=== PATIENT | male | born 1970 | race Caucasian/White ===

== ENCOUNTER 2016-06-27 19:24 | Inpatient (IN) | payer OTHER ==
[~2016-06-27] VITALS: Ht 185.4 cm; Wt 84.5 kg
[~2016-06-27 19:24] MED LIST: CLINDAMYCIN HC150 MG PO; DOXEPIN HCL25 MG PO; HYDROCODON-ACE1 EACH; KLONOPIN1 MG PO; LITHIUM CARBON300 M1 PO; LITHIUM CARBON600 MG PO; MOBIC15 MG PO; MOTRIN600 MG PO; TRAMADOL HCL50 MG PO; ZOLOFT100 MG PO; [UNRECOGNIZED DRUG - OTHER]; [UNRECOGNIZED DRUG - OTHER] PO
[2016-06-27] MEDS ORDERED: TYLENOL REGULA325 MG PO (20:36)
[2016-06-27 23:17] LABS: HEMATOCRIT 38.4 % (38.0-50.0); MCH 29.1 PG (29.0-34.0); MCHC 35.4 G/DL (30.0-36.0); MCV 82.1 FL (86-99); MEAN PLAT.VOLUME 10.4 uM^3 (9.0-12.4); PLATELET COUNT 357 K/uL (156-360); RBC DIS.WIDTH-CV 15.9 % (11.8-14.6); RBC DIS.WIDTH-SD 46.6 % (39-53); RED BLOOD COUNT 4.68 M/uL (4.00-5.50); WHITE BLOOD COUNT 13.3 K/uL (4.1-10.2)
[2016-06-27 23:29] LABS: CHLORIDE 108 mEq/L (99-109); POTASSIUM 3.7 mEq/L (3.7-5.4); SODIUM 142 mEq/L (136-147)
[2016-06-27 23:31] LABS: GLUCOSE 111 mg/dL (70-99)
[2016-06-27 23:33] LABS: ANION GAP 10 MEQ/L (2-14); TOTAL BILIRUBIN 0.7 mg/dL (0.0-1.0)
[2016-06-27 23:35] LABS: GFR ESTIMATE (CALCULATED) > 59 mL/min/
[2016-06-27 23:36] LABS: ALKALINE PHOSPHATASE 53 IU/L (3-129)
[2016-06-27 23:37] LABS: UREA NITROGEN (BUN) 12 mg/dL (9-23)
[2016-06-27 23:39] LABS: SALICYLATE < 5.0 MG/DL (15-30)
[2016-06-28 01:36] VITALS: BP 110/66
[2016-06-28 02:23] VITALS: BP 110/66
[2016-06-28 05:50] VITALS: BP 129/60
[2016-06-28 06:11] LABS: HEMATOCRIT 42.5 % (38.0-50.0); MCH 28.5 PG (29.0-34.0); MCHC 34.8 G/DL (30.0-36.0); MCV 81.9 FL (86-99); MEAN PLAT.VOLUME 10.1 uM^3 (9.0-12.4); PLATELET COUNT 400 K/uL (156-360); RBC DIS.WIDTH-CV 15.9 % (11.8-14.6); RBC DIS.WIDTH-SD 46.4 % (39-53); RED BLOOD COUNT 5.19 M/uL (4.00-5.50)
[2016-06-28 06:29] LABS: ANION GAP 9 MEQ/L (2-14); CHLORIDE 107 MEQ/L (99-109); GFR ESTIMATE (CALCULATED) > 59 mL/min/; GLUCOSE 138 mg/dL (70-99); POTASSIUM 4.1 MEQ/L (3.7-5.4); SAMPLE HEMOLYSIS CHECK 0; SAMPLE ICTERIC CHECK 0; SAMPLE LIPEMIA CHECK 0; SODIUM 138 MEQ/L (136-147); UREA NITROGEN (BUN) 11 mg/dL (9-23)
[2016-06-28 07:43] VITALS: BP 109/58
[2016-06-28 19:38] VITALS: BP 114/76
== END 2016-06-28 20:20 | disposition left against medical advice (07) | DRG 54 ==
LOC: EME 19:24 → EDOF 23:52 → 3EAST 06-28 01:13
PROVIDERS: Family Medicine; Physician Assistant
DX: C79.31 Secondary malignant neoplasm of brain (principal); G93.6 Cerebral edema; C34.90 Malignant neoplasm of unspecified part of unspecified bronchus or lung; G93.89 Other specified disorders of brain; J44.9 Chronic obstructive pulmonary disease, unspecified; F17.210 Nicotine dependence, cigarettes, uncomplicated; F10.129 Alcohol abuse with intoxication, unspecified; F32.9 Major depressive disorder, single episode, unspecified
CPT/HCPCS: 70450; 70553; 71260; 74177; 80048; 80053; 85027; 99202; 99281; 99285; G0480; J1100; J1200; J1650; J1885; J2270; J2765; J7030; J7120

== ENCOUNTER 2016-07-07 22:16 | Emergency (ER) | payer OTHER ==
[~2016-07-07] VITALS: Ht 185.4 cm; Wt 87.2 kg
[~2016-07-07 22:16] MED LIST changes: +TYLENOL REGULA325 MG PO
[2016-07-08] MEDS ORDERED: PERCOCET 5/31 TABLET PO (00:02)
[2016-07-08] MEDS ORDERED: REGLAN10 MG PO (00:02)
[2016-07-08 00:24] VITALS: BP 116/65
[2016-07-14] MEDS ORDERED: DECADRON4 MG PO (12:45)
[2016-07-14] MEDS ORDERED: PERCOCET 7.51 TABLET PO (12:47)
[2016-07-14] MEDS ORDERED: PRILOSEC20 MG PO (12:49)
== END 2016-07-08 00:34 | disposition home or self-care (01) ==
LOC: EME 22:16
DX: R51 Headache (principal); D49.6 Neoplasm of unspecified behavior of brain; Z72.0 Tobacco use
CPT/HCPCS: 99281; 99284

== ENCOUNTER 2016-07-15 07:58 | Inpatient (IN) | payer OTHER ==
[2016-07-15] VITALS (7 sets, daily range): BP systolic 111–125; BP diastolic 70–90
[~2016-07-15] VITALS: Ht 185.4 cm; Wt 79.5 kg
[~2016-07-15 07:58] MED LIST changes: +DECADRON4 MG PO; +PERCOCET 5/31 TABLET PO; +PERCOCET 7.51 TABLET PO; +PRILOSEC20 MG PO; +REGLAN10 MG PO
[2016-07-15 09:58] LABS: HEMATOCRIT 38.4 % (38.0-50.0); MCH 28.9 PG (29.0-34.0); MCHC 35.4 G/DL (30.0-36.0); MCV 81.7 FL (86-99); MEAN PLAT.VOLUME 10.1 uM^3 (9.0-12.4); PLATELET COUNT 388 K/uL (156-360); RBC DIS.WIDTH-CV 15.7 % (11.8-14.6); RBC DIS.WIDTH-SD 45.5 % (39-53)
[2016-07-15 09:59] LABS: WHITE BLOOD COUNT 19.6 K/uL (4.1-10.2)
[2016-07-15 10:25] LABS: ANION GAP 7 MEQ/L (2-14); CHLORIDE 103 MEQ/L (99-109); GFR ESTIMATE (CALCULATED) > 59 mL/min/; GLUCOSE 103 mg/dL (70-99); POTASSIUM 4.1 MEQ/L (3.7-5.4); SAMPLE HEMOLYSIS CHECK 0; SAMPLE ICTERIC CHECK 0; SAMPLE LIPEMIA CHECK 0; SODIUM 136 MEQ/L (136-147); UREA NITROGEN (BUN) 25 mg/dL (9-23)
[2016-07-15 22:20] LABS: METH RESISTANT S AUREUS PCR NEGATIVE (NEGATIVE)
[2016-07-15 22:24] LABS: PROBE CHECK PASS; SPECIMEN PROCESSING CONTROL PASS
[2016-07-16] VITALS (17 sets, daily range): BP systolic 100–136; BP diastolic 61–84
[2016-07-17] VITALS: BP 123/71
[2016-07-17 04:00] VITALS: BP 119/77
[2016-07-17 08:00] VITALS: BP 120/74
[2016-07-17 12:00] VITALS: BP 118/59
[2016-07-17 15:00] VITALS: BP 128/80
== END 2016-07-17 15:40 | disposition home or self-care (01) | DRG 25 ==
LOC: 2SOUTH 07:58 → 4WEST 07:58 → 2SOUTH 08:00 → 4WEST 19:10
PROVIDERS: Neurological Surgery
PROC: 00B70ZZ Excision of Cerebral Hemisphere, Open Approach (ICD-10-PCS; principal; 2016-07-15)
DX: C79.31 Secondary malignant neoplasm of brain (principal); G93.5 Compression of brain; G93.6 Cerebral edema; C34.90 Malignant neoplasm of unspecified part of unspecified bronchus or lung; J44.9 Chronic obstructive pulmonary disease, unspecified; F31.9 Bipolar disorder, unspecified; G43.909 Migraine, unspecified, not intractable, without status migrainosus
CPT/HCPCS: 70450; 77021; 80048; 85027; 86850; 86900; 86901; 87641; 88307; 88331; 88341 TC; 88342 TC; 93005; 95938; C1713; J0131; J0330; J0690; J1100; J1170; J2250; J2270; J2405; J3010; J3480

== ENCOUNTER 2016-12-18 18:23 | Emergency (ER) | payer OTHER ==
[~2016-12-18] VITALS: Ht 185.4 cm; Wt 79.1 kg
[2016-12-18 18:46] LABS: HEMATOCRIT 45.2 % (38.0-50.0); MCH 31.4 PG (29.0-34.0); MCHC 37.6 G/DL (30.0-36.0); MCV 83.4 FL (86-99); MEAN PLAT.VOLUME 9.6 uM^3 (9.0-12.4); PLATELET COUNT 307 K/uL (156-360); RBC DIS.WIDTH-CV 15.6 % (11.8-14.6); RBC DIS.WIDTH-SD 46.8 % (39-53); RED BLOOD COUNT 5.42 M/uL (4.00-5.50); WHITE BLOOD COUNT 20.7 K/uL (4.1-10.2)
[2016-12-18 18:50] LABS: CHLORIDE 92 mEq/L (99-109); POTASSIUM 3.6 mEq/L (3.7-5.4); SODIUM 134 mEq/L (136-147)
[2016-12-18 18:51] LABS: GLUCOSE 57 mg/dL (70-99)
[2016-12-18 18:53] LABS: ANION GAP 21 MEQ/L (2-14)
[2016-12-18 18:55] LABS: GFR ESTIMATE (CALCULATED) > 59 mL/min/
[2016-12-18 18:56] LABS: UREA NITROGEN (BUN) 9 mg/dL (9-23)
[2016-12-18 19:39] LABS: TROP-I INTERPRETATION NEGATIVE; TROPONIN-I 0.01 ng/mL (0.0-0.30)
[2016-12-18] MEDS ORDERED: DOXYCYCLINE HY100 MG PO (20:35)
[2016-12-18] MEDS ORDERED: ROBITUSSIN AC,T10 ML PO (20:35)
[2016-12-18 21:13] VITALS: BP 150/87
== END 2016-12-18 21:28 | disposition home or self-care (01) ==
LOC: EME 18:23
PROVIDERS: Emergency Medicine
DX: J40 Bronchitis, not specified as acute or chronic (principal); C34.90 Malignant neoplasm of unspecified part of unspecified bronchus or lung; Z87.891 Personal history of nicotine dependence; Z92.3 Personal history of irradiation
CPT/HCPCS: 71020; 80048; 84484; 85027; 93005; 99281; 99284

== ENCOUNTER 2017-01-29 17:49 | Emergency (ER) | payer OTHER ==
[~2017-01-29] VITALS: Ht 185.4 cm; Wt 79.7 kg
[~2017-01-29 17:49] MED LIST changes: +DOXYCYCLINE HY100 MG PO; +ROBITUSSIN AC,T10 ML PO
[2017-01-29 18:22] LABS: BASOPHIL COUNT 0.1 K/uL (0-0.1); EOSINOPHIL (%) 0.8 % (0-5); EOSINOPHIL COUNT 0.1 K/uL (0-0.3); HEMATOCRIT 45.6 % (38.0-50.0); IMMATURE GRANULOCYTE (%) 0.5 % (0.0-0.7); IMMATURE GRANULOCYTE COUNT 0.1 K/uL; INSTRUMENT ABS NEUTROPHIL CT 8.4 K/uL; LYMPHOCYTE COUNT 1.6 K/uL (1.0-2.8); MCH 32.7 PG (29.0-34.0); MCHC 37.1 G/DL (30.0-36.0); MCV 88.2 FL (86-99); MEAN PLAT.VOLUME 9.4 uM^3 (9.0-12.4); MONOCYTE COUNT 0.8 K/uL (0-0.8); NEUTROPHIL (%) 76.8 % (45-76); NEUTROPHIL COUNT 8.4 K/uL (1.8-6.4); PLATELET COUNT 217 K/uL (156-360); RBC DIS.WIDTH-CV 16.7 % (11.8-14.6); RBC DIS.WIDTH-SD 52.9 % (39-53); RED BLOOD COUNT 5.17 M/uL (4.00-5.50)
[2017-01-29 18:31] LABS: CHLORIDE 101 mEq/L (99-109); POTASSIUM 3.7 mEq/L (3.7-5.4); SODIUM 137 mEq/L (136-147)
[2017-01-29 18:33] LABS: GLUCOSE 85 mg/dL (70-99)
[2017-01-29 18:34] LABS: ANION GAP 11 MEQ/L (2-14)
[2017-01-29 18:35] LABS: TOTAL BILIRUBIN 0.4 mg/dL (0.0-1.0)
[2017-01-29 18:36] LABS: ALKALINE PHOSPHATASE 98 IU/L (3-129)
[2017-01-29 18:37] LABS: GFR ESTIMATE (CALCULATED) > 59 mL/min/
[2017-01-29 18:38] LABS: UREA NITROGEN (BUN) 8 mg/dL (9-23)
[2017-01-29 18:40] LABS: ADD MIUA? YES; BILIRUBIN NEGATIVE; BLOOD SMALL; COLOR YELLOW ((YELLOW)); GLUCOSE (STRIP) NEGATIVE; KETONES NEGATIVE; LEUKOCYTES NEGATIVE; NITRITE NEGATIVE; PROTEIN (STRIP) 30; SPECIFIC GRAVITY 1.008 (1.000-1.030); UROBILINOGEN 0.2 MG/DL (0.2-1.0)
[2017-01-29 18:43] LABS: TROP-I INTERPRETATION NEGATIVE; TROPONIN-I < 0.01 ng/mL (0.0-0.30)
[2017-01-29 18:46] LABS: BACTERIA NONE SEEN /HPF; EPITHELIAL CELLS RARE /HPF; MUCUS TRACE /LPF; RED BLOOD CELLS 0-5 /HPF (0-5); UCUL ADDED? NO; WHITE BLOOD CELLS 0-5 /HPF (0-5)
[2017-01-29 20:02] VITALS: BP 105/68
== END 2017-01-29 20:16 | disposition home or self-care (01) ==
LOC: EME 17:49
PROVIDERS: Emergency Medicine
DX: R06.02 Shortness of breath (principal); R91.8 Other nonspecific abnormal finding of lung field; R07.9 Chest pain, unspecified; R10.30 Lower abdominal pain, unspecified; Z85.118 Personal history of other malignant neoplasm of bronchus and lung; R53.81 Other malaise; F17.200 Nicotine dependence, unspecified, uncomplicated
CPT/HCPCS: 71020; 80053; 81003; 84484; 85025; 93005; 99281; 99284

== ENCOUNTER 2017-02-02 22:52 | Emergency (ER) | payer OTHER ==
[~2017-02-02] VITALS: Ht 185.4 cm; Wt 81.8 kg
[2017-02-02 23:46] LABS: CHLORIDE 95 mEq/L (99-109); POTASSIUM 3.3 mEq/L (3.7-5.4); SODIUM 137 mEq/L (136-147)
[2017-02-02 23:48] LABS: GLUCOSE 93 mg/dL (70-99)
[2017-02-02 23:49] LABS: ANION GAP 17 MEQ/L (2-14)
[2017-02-02 23:52] LABS: GFR ESTIMATE (CALCULATED) > 59 mL/min/; UREA NITROGEN (BUN) 10 mg/dL (9-23)
[2017-02-02 23:53] LABS: HEMATOCRIT 43.9 % (38.0-50.0); MCH 33.3 PG (29.0-34.0); MCHC 38.3 G/DL (30.0-36.0); MCV 87.1 FL (86-99); RBC DIS.WIDTH-CV 16.2 % (11.8-14.6); RBC DIS.WIDTH-SD 51.2 % (39-53); RED BLOOD COUNT 5.04 M/uL (4.00-5.50); WHITE BLOOD COUNT 10.8 K/uL (4.1-10.2)
[2017-02-03 00:39] LABS: MEAN PLAT.VOLUME 10.7 uM^3 (9.0-12.4); PLAT.SUFFICIENCY ADEQUATE; PLATELET COUNT 146 K/uL (156-360)
[2017-02-03] MEDS ORDERED: PREDNISONE20 MG PO (00:46)
[2017-02-03 00:56] VITALS: BP 97/56
== END 2017-02-03 01:01 | disposition home or self-care (01) ==
LOC: EME 22:52
PROVIDERS: Emergency Medicine
DX: T78.40XA Allergy, unspecified, initial encounter (principal); F31.9 Bipolar disorder, unspecified; Z72.0 Tobacco use
CPT/HCPCS: 70450; 70480; 80048; 85027; 99281; 99284; J7512